=== PATIENT | female | born 1945 | race Caucasian/White ===

== ENCOUNTER 2016-09-05 17:15 | Inpatient (IN) | payer MEDICARE, OTHER ==
[~2016-09-05] VITALS: Ht 165.1 cm; Wt 147.4 kg
--- NOTE | 2016-09-05 17:20 | NUR ---
PT MERCEDEZ FROM SNF TO ER BED 12. HERE FOR MEDICAL CLEARANCE PRIOR TO SHANICE [facility]YCH ADMISSION. ON 5150 HOLD FOR GD. PLACED ON MONITOR. NAD NOTED. AWAITING MD FERREIRA.
--- NOTE | 2016-09-05 17:31 | NUR ---
MUD MIXER OPERATOR AT BEDSIDE FOR BLOOD DRAW.
[2016-09-05 17:37] LABS: BASOPHILS % (AUTO) 0.3 % (0.0-2.0); EOSINOPHILS # (AUTO) 0.5 /CMM (0.0-0.7); EOSINOPHILS % (AUTO) 4.3 % (0.0-6.0); HEMATOCRIT 45 % (33-45); HEMOGLOBIN 14.9 g/dL (11.5-14.8); LYMPHOCYTES # (AUTO) 2.1 /CMM (0.8-4.8); LYMPHOCYTES % (AUTO) 18.7 % (20.0-44.0); MEAN CORPUSCULAR HEMOGLOBIN 29 PG (26.0-33.0); MEAN CORPUSCULAR HGB CONC 33 g/dl (31.0-36.0); MEAN CORPUSCULAR VOLUME 90 fL (82-100); MONOCYTES # (AUTO) 0.7 /CMM (0.1-1.30); MONOCYTES % (AUTO) 5.7 % (2.0-12.0); NEUTROPHILS # (AUTO) 8.1 /CMM (1.8-8.9); PLATELET COUNT (AUTO) 281 /CMM (150-450); RDW COEFFICIENT OF VARIATION 14.7 (11.5-15.0); RED BLOOD CELL COUNT(AUTO) 5.05 MIL/uL (4.0-5.2); WHITE BLOOD COUNT (AUTO) 11.4 K/uL (4.3-11.0)
[2016-09-05 17:53] LABS: CALCIUM, SERUM 8.9 mg/dL (8.5-10.1); CARBON DIOXIDE 23 mmol/L (21-32); CHLORIDE 104 mmol/L (98-107); CREATININE 0.7 mg/dL (0.6-1.3); GFR 83 mL/min (>60); GLUCOSE 225 mg/dL (74-106); POTASSIUM 4.3 mmol/L (3.5-5.1); SODIUM SERUM 139 mmol/L (136-145); UREA NITROGEN, BLOOD 15 mg/dL (7-18)
[2016-09-05 17:55] LABS: ALCOHOL, BLOOD < 3 mg/dL (0-0)
[2016-09-05 18:07] LABS: THYROID STIMULATING HORMONE 2.553 uIU/mL (0.358-3.74)
[2016-09-05] MEDS ORDERED: DOCU-25 PO (18:34)
[2016-09-05] MEDS ORDERED: AMLO5TAB2 PO (18:34)
[2016-09-05] MEDS ORDERED: CANA100T PO (18:34)
[2016-09-05] MEDS ORDERED: CARB-93 PO (18:34)
[2016-09-05] MEDS ORDERED: SITA100T PO (18:34)
[2016-09-05] MEDS ORDERED: SIMV20TA2 PO (18:34)
[2016-09-05] MEDS ORDERED: SODI100010 PO (18:34)
[2016-09-05] MEDS ORDERED: METF10002 PO (18:34)
[2016-09-05] MEDS ORDERED: DOXA2TAB PO (18:34)
[2016-09-05] MEDS ORDERED: MULT-213 PO (18:34)
[2016-09-05] MEDS ORDERED: OMEP20CA10 PO (18:34)
[2016-09-05] MEDS ORDERED: POLY15DR57 EACHEYE (18:34)
[2016-09-05] MEDS ORDERED: ACET-868 PO (18:34)
[2016-09-05] MEDS ORDERED: CARV6.25 PO (18:34)
[2016-09-05] MEDS ORDERED: HYDR-548 PO (18:34)
[2016-09-05] MEDS ORDERED: LEVO100T9 PO (18:34)
[2016-09-05] MEDS ORDERED: MAGN400T6 PO (18:34)
[2016-09-05] MEDS ORDERED: SENN8.6T6 PO (18:34)
[2016-09-05] MEDS ORDERED: LOSA50TA3 PO (18:34)
[2016-09-05] MEDS ORDERED: INSU100V10 SQ (18:34)
[2016-09-05] MEDS ORDERED: DIVA500T2 PO (18:34)
[2016-09-05] MEDS ORDERED: INSU100I14 SQ (18:34)
--- NOTE | 2016-09-05 18:44 | NUR ---
REPORT GIVEN TO AURORA. PT TRANSFERED TO FLOOR. STABLE CONDITION.
--- NOTE | 2016-09-05 19:30 | NUR ---
ADMITTED NOTES THIS 71Y/O FEMALE ADMITTED FROM [facility] ER. IS ON 5150 HOLD FOR GD PER HOLD , PT IS A/0 X 1,2 ,PT UNCOOPERATIVE COMBATIVE AGGRESSIVE, CONTRABAND CHECK DONE, SAFE ENVIRONMENT PROVIDED , BOTH MD AWARE OF NEW ADMISSION AND MEDICATION, NEW ORDERS RECEIVED AND CARRIED OUT, FAMILY AWARE. WILL CONTINUE TO MONITOR FOR SAFETY AND BEHAVIOR .
[2016-09-05] MEDS ORDERED: MAGNESIUM HYDROXIDE 30 ML UDC PO PRN (20:00)
[2016-09-05] MEDS ORDERED: ACETAMINOPHEN 325 MG TABLET PO PRN (20:00)
[2016-09-05] MEDS ORDERED: LORAZEPAM 0.5 MG TABLET PO PRN (20:00)
[2016-09-05] MEDS ORDERED: MAG HYDROX/AL HYDROX/SIMETH 30 ML UDC PO PRN (20:00)
--- NOTE | 2016-09-05 21:00 | NUR ---
GPS RN NOTES BODY CHECK DONE, PERIANAL AREA AND BUTTOCKS AREA REDNESS NOTED , INITIATE TX ,PICTURE TAKEN AND PLACED IN THE CHART , WOUND CONSULT TRIGGERED,
[2016-09-05] MEDS: TEMAZEPAM 7.5 MG CAPSULE PO PRN (21:28)
[2016-09-05] MEDS ORDERED: Z GUARD REMEDY 4 OZ OINT TP ONE (21:54)
[2016-09-05] MEDS ORDERED: Z GUARD REMEDY 2 OZ OINT TP PRN (22:00)
[2016-09-05] MEDS: Z GUARD REMEDY 2 OZ OINT TP SCH (22:59)
--- NOTE | 2016-09-06 00:10 | NUR ---
GPS RN NOTE: NOTIFIED JON BRICEÑO NP TO RECONCILE MEDICATION
[2016-09-06 01:40] VITALS: BP 156/79
[2016-09-06 07:03] LABS: CREATININE 0.7 mg/dL (0.6-1.3)
[2016-09-06 08:00] VITALS: BP 153/93
[2016-09-06] MEDS: Z GUARD REMEDY 2 OZ OINT TP SCH ×2 (09:02→21:32)
[2016-09-06] MEDS ORDERED: DEXTROSE 50%-WATER 50 ML DISP.SYRIN IV PRN (09:30)
[2016-09-06] MEDS ORDERED: *INSULIN REGULAR(HUMULIN R)HUM 100 UNIT/ML VIAL SQ PRN (09:30)
[2016-09-06] MEDS ORDERED: POLYVINYL ALCOHOL 15 ML BOTTLE EACHEYE PRN (09:30)
[2016-09-06] MEDS ORDERED: HYDROCODONE/APAP 10/325MG 1 EA TABLET PO PRN (09:30)
[2016-09-06] MEDS ORDERED: ACETAMINOPHEN 325 MG TABLET PO PRN (09:30)
[2016-09-06] MEDS: MULTIVIT, IRON, MIN NO. 8, FA 1 TAB TABLET PO SCH (10:16)
[2016-09-06] MEDS: BLOOD SUGAR DIAGNOSTIC 1 EACH STRIP IN SCH ×3 (12:43→21:21)
--- NOTE | 2016-09-06 12:44 | NUR ---
WOUND CARE CONSULT: PT PRESENTS WITH FUNGAL RASH TO BREAST FOLDS AND INNER BUTTOCKS, PERINEAL AREAS, PRESENT ON ADMISSION WELL EXCORIATION TO RT POSTERIOR THIGH, PRESENT ON ADMISSION. PT INCONTINENT. MP SCORE IS 18. SKIN PROTECTION DISCUSSED WITH NURSING STAFF. WILL SEE PRN. MARTINEZ IN AGREEMENT WITH PLAN OF CARE. Addendum: 09/06/16 at 1245 by RAJENDRA BAE WNDNU Amended: Links added.
[2016-09-06] MEDS: CARBIDOPA/LEVODOPA 25/100 MG 1 UDTAB PO SCH ×2 (13:24→16:32)
[2016-09-06] MEDS: INSULIN REGULAR, HUMAN 100 UNIT/ML 3 ML VIAL SQ PRN ×2 (13:25→18:36)
--- NOTE | 2016-09-06 13:26 | NUR ---
Initial Discharge Plan: Patient currently resides at [facility] [id number] [place] [address]. [place], [place] [id number] . aboriginal education worker coordinator spoke to patient's sister/ co-conservator An Tomas ([phone]) who stated that she wanted patient to return to [facility]. aboriginal education worker coordinator spoke to Cari from the facility who confirmed that patient can return upon discharge. aboriginal education worker coordinator will help form a safe and proper discharge.
--- NOTE | 2016-09-06 14:47 | NUR ---
Psychosocial assessment was reviewed and I concur with the information provided. No changes are necessary. Assigned SW to obtain brother's information (conservator according to pt ) to verify discharge planning. Addendum: 09/06/16 at 1450 by STEFAN LEDBETTER SW Amended: Links added.
[2016-09-06 16:00] VITALS: BP 137/56
[2016-09-06] MEDS: SODIUM CHLORIDE 1000 MG TABLET.SOL PO SCH (16:32)
[2016-09-06] MEDS: METFORMIN 500 MG TABLET PO SCH (16:33)
[2016-09-06] MEDS: AMLODIPINE BESYLATE 5 MG TABLET PO SCH (16:33)
[2016-09-06] MEDS: MAGNESIUM OXIDE 400 MG TABLET PO SCH (16:33)
[2016-09-06] MEDS: DOCUSATE SODIUM 100 MG CAPSULE PO SCH (16:33)
[2016-09-06] MEDS: CARVEDILOL 6.25 MG TABLET PO SCH (16:34)
[2016-09-06] MEDS: CLOTRIMAZOLE/BETAMETASONE DIPROPIONATE 15 GM TUBE TP SCH (16:35)
--- NOTE | 2016-09-06 19:30 | NUR ---
RN NOTE; RECEIVED PT IN BED AWAKE AND ALERT. BREATHING EVENLY. NO SOB. NO DISTRESS. NO BEHAVIORAL PROBLEM . DENIED ANY PAIN OR DISCOMFORT. NEEDS ATTENDED. BED LOW LOCKED. SRZ2. CALL LIGHT WITHIN REACH, WILL CONT TO MONITOR
[2016-09-06 20:29] VITALS: BP 140/52
[2016-09-06] MEDS: MUPIROCIN OINT 2% 22 GM TUBE SCH (21:17)
[2016-09-06] MEDS: LOSARTAN POTASSIUM 50 MG TABLET PO SCH (21:17)
[2016-09-06] MEDS: QUETIAPINE FUMARATE 100 MG TABLET PO SCH (21:18)
[2016-09-06] MEDS: DIVALPROEX SODIUM 500 MG TABLET.DR PO SCH (21:18)
[2016-09-06] MEDS: SIMVASTATIN 20 MG TABLET PO SCH (21:18)
[2016-09-06] MEDS: SENNOSIDES 8.6 MG TABLET PO SCH (21:18)
[2016-09-06] MEDS: DOXAZOSIN MESYLATE (1 MG) 1 MG TABLET PO SCH (21:19)
[2016-09-06] MEDS: INSULIN DETEMIR 100 UNIT/ML CARTRIDGE SQ SCH (21:22)
[2016-09-06] MEDS ORDERED: DIVALPROEX SODIUM 500 MG TABLET.DR PO SCH (22:00)
--- NOTE | 2016-09-07 06:18 | NUR ---
rn note; PT IN BED SLEEPING, BREATHING EVENLY. NO SOB, NO DISTRESS. SKIN WARM AND DRY. 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 GOOD ISOLATION PRECAUTION AND PROPER HANDWASHING OBSERVED BY ALL STAFF. NO EPISODE OF HYPO OR HYPERGLYCEMIA. NO ACUTE CHANGES DURING THE NIGHT. NO ANXIETY EPISODE. COMPLIANT W/ MEDICATIONS. MEDICATED ORDERED. ASSISTED W/ ADLS. CLEANED AND DRIED. BED LOW LOCKED ; CALL BUTTON WITHIN REACH , WILL CONT TO MONITOR AND WILL ENDORSE TO AM SHIFT FOR ANTONIA.
[2016-09-07 08:00] VITALS: BP 119/51
[2016-09-07] MEDS: BLOOD SUGAR DIAGNOSTIC 1 EACH STRIP IN SCH ×4 (08:06→21:36)
[2016-09-07] MEDS: SODIUM CHLORIDE 1000 MG TABLET.SOL PO SCH ×2 (08:28→16:29)
[2016-09-07] MEDS: MAGNESIUM OXIDE 400 MG TABLET PO SCH ×2 (08:28→16:29)
[2016-09-07] MEDS: QUETIAPINE FUMARATE 25 MG TABLET PO SCH (08:28)
[2016-09-07] MEDS: DIVALPROEX SODIUM 500 MG TABLET.DR PO SCH ×2 (08:28→20:15)
[2016-09-07] MEDS: DOCUSATE SODIUM 100 MG CAPSULE PO SCH ×2 (08:28→16:29)
[2016-09-07] MEDS: LINAGLIPTIN 5 MG TABLET PO SCH (08:28)
[2016-09-07] MEDS: LEVOTHYROXINE SODIUM 100 MCG TABLET PO SCH (08:28)
[2016-09-07] MEDS: MULTIVIT, IRON, MIN NO. 8, FA 1 TAB TABLET PO SCH (08:28)
[2016-09-07] MEDS: CARBIDOPA/LEVODOPA 25/100 MG 1 UDTAB PO SCH ×3 (08:28→16:29)
[2016-09-07] MEDS: METFORMIN 500 MG TABLET PO SCH ×2 (08:28→16:29)
[2016-09-07] MEDS: MUPIROCIN OINT 2% 22 GM TUBE SCH ×2 (08:29→21:22)
[2016-09-07] MEDS: PANTOPRAZOLE 40 MG TABLET.DR PO SCH (08:29)
[2016-09-07] MEDS: Z GUARD REMEDY 2 OZ OINT TP SCH ×2 (08:33→21:14)
[2016-09-07] MEDS: CLOTRIMAZOLE/BETAMETASONE DIPROPIONATE 15 GM TUBE TP SCH ×2 (08:36→16:32)
[2016-09-07] MEDS: INSULIN DETEMIR 100 UNIT/ML CARTRIDGE SQ SCH ×2 (09:00→21:00)
[2016-09-07] MEDS: CARVEDILOL 6.25 MG TABLET PO SCH ×2 (09:00→16:45)
[2016-09-07] MEDS: LOSARTAN POTASSIUM 50 MG TABLET PO SCH ×2 (09:00→20:15)
[2016-09-07] MEDS ORDERED: CANAGLIFLOZIN 200 MG PO SCH (09:00)
[2016-09-07] MEDS: AMLODIPINE BESYLATE 5 MG TABLET PO SCH ×2 (09:00→16:45)
--- NOTE | 2016-09-07 09:00 | NUR ---
GPS/RN PATIENT BS, 183, REFUSED LEVIMER 12 UNITS AND REGULAR INSULIN 4 UNITS.EXPLAINED RISKS AND BENEFITS, BUT CONTINUES TO REFUSE, SHOUTING AND INCREASING ANGER AND AGITATION WHEN EDUCATING ON THE IMPORTANCE OF COMPLYING WITH REGIMEN. STABLE CONDITION, WILL CONTINUE TO MONITOR AND ENCOURAGE TO COMPLY WITH MD REGIMEN.
--- NOTE | 2016-09-07 09:30 | NUR ---
GPS/RN PATIENT BLOOD PRESSURE 119/51, RECHECKED, THEN 127/48, BLOOD PRESSURE MEDICATIONS HELD DUE TO DECREASED BP READING, PATIENT STABLE CONDITION, BREATHING EVEN AND UNLABORED,NO DISTRESS NOTED, WILL CONTINUE TO MONITOR.
--- NOTE | 2016-09-07 12:15 | NUR ---
GPS/RN PATIENT ADAMANTLY REFUSING ACCUCHECK, STATED "NO, GET OUT, I ONLY WANT MY PILLS, " EXPLAINED RISKS AND BENEFITS, CONTINUES TO REFUSE, WILL CONTINUE TO ENCOURAGE AND EDUCATE PATIENT TO COMPLY WITH MD REGIMEN.
[2016-09-07 16:01] VITALS: BP 132/61
--- NOTE | 2016-09-07 17:48 | NUR ---
GPS/RN PATIENT REFUSED 1730 ACCCAMERON, X 3, EXPLAINED RISKS AND BENEFITS BUT BECOMES INCREASINGLY ANXIOUS AND AGITATED AND CONTINUES TO REFUSE, WILL CONTINUE TO ENCOURAGE AND EDUCATE PATIENT TO COMPLY WITH MD REGIMEN.
[2016-09-07 20:00] VITALS: BP 162/86
[2016-09-07] MEDS: SIMVASTATIN 20 MG TABLET PO SCH (21:09)
[2016-09-07] MEDS: DOXAZOSIN MESYLATE (1 MG) 1 MG TABLET PO SCH (21:09)
[2016-09-07] MEDS: SENNOSIDES 8.6 MG TABLET PO SCH (21:10)
[2016-09-07] MEDS: QUETIAPINE FUMARATE 100 MG TABLET PO SCH (21:22)
[2016-09-07] MEDS: TEMAZEPAM 7.5 MG CAPSULE PO PRN (22:07)
--- NOTE | 2016-09-07 23:00 | NUR ---
GPS RN NOTES REFUSED ACCU CHECK AT HS. REFUSED LEVEMIR WELL.
[2016-09-08] MEDS: BLOOD SUGAR DIAGNOSTIC 1 EACH STRIP IN SCH ×4 (07:30→21:09)
[2016-09-08 08:00] VITALS: BP 124/69
[2016-09-08] MEDS: INSULIN DETEMIR 100 UNIT/ML CARTRIDGE SQ SCH ×2 (09:00→21:00)
[2016-09-08] MEDS: MULTIVIT, IRON, MIN NO. 8, FA 1 TAB TABLET PO SCH (09:06)
[2016-09-08] MEDS: CARBIDOPA/LEVODOPA 25/100 MG 1 UDTAB PO SCH ×3 (09:06→16:48)
[2016-09-08] MEDS: DIVALPROEX SODIUM 500 MG TABLET.DR PO SCH ×2 (09:06→20:20)
[2016-09-08] MEDS: QUETIAPINE FUMARATE 25 MG TABLET PO SCH (09:07)
[2016-09-08] MEDS: LINAGLIPTIN 5 MG TABLET PO SCH (09:07)
[2016-09-08] MEDS: SODIUM CHLORIDE 1000 MG TABLET.SOL PO SCH ×2 (09:07→16:49)
[2016-09-08] MEDS: LEVOTHYROXINE SODIUM 100 MCG TABLET PO SCH (09:07)
[2016-09-08] MEDS: METFORMIN 500 MG TABLET PO SCH ×2 (09:07→16:49)
[2016-09-08] MEDS: MAGNESIUM OXIDE 400 MG TABLET PO SCH ×2 (09:07→16:49)
[2016-09-08] MEDS: PANTOPRAZOLE 40 MG TABLET.DR PO SCH (09:07)
[2016-09-08] MEDS: DOCUSATE SODIUM 100 MG CAPSULE PO SCH ×2 (09:07→16:49)
[2016-09-08] MEDS: CARVEDILOL 6.25 MG TABLET PO SCH ×2 (09:08→16:50)
[2016-09-08] MEDS: AMLODIPINE BESYLATE 5 MG TABLET PO SCH ×2 (09:08→16:50)
[2016-09-08] MEDS: LOSARTAN POTASSIUM 50 MG TABLET PO SCH ×2 (09:08→20:21)
[2016-09-08] MEDS: Z GUARD REMEDY 2 OZ OINT TP SCH ×2 (09:09→21:06)
[2016-09-08] MEDS: MUPIROCIN OINT 2% 22 GM TUBE SCH ×2 (09:12→21:04)
[2016-09-08] MEDS: CLOTRIMAZOLE/BETAMETASONE DIPROPIONATE 15 GM TUBE TP SCH ×2 (09:12→16:51)
--- NOTE | 2016-09-08 09:30 | NUR ---
GPS/RN PT REFUSED ACCUCHECK IN AM OFFERED X3. DR OTERO MADE AWARE.
--- NOTE | 2016-09-08 14:04 | NUR ---
mat worker attempted to contact patient's brother and conservator Flash Arrieta ([phone]) however, he did not answer. mat worker left him a message with her contact information and is waiting for a call back. mat worker did speak to patient's sister An Tomas (co-conservator) ([phone]) to discuss patient's discharge plan. social services coordinator will follow-up.
[2016-09-08 16:09] VITALS: BP 125/62
[2016-09-08 20:00] VITALS: BP 128/57
[2016-09-08] MEDS: SENNOSIDES 8.6 MG TABLET PO SCH (21:10)
[2016-09-08] MEDS: DOXAZOSIN MESYLATE (1 MG) 1 MG TABLET PO SCH (21:11)
[2016-09-08] MEDS: SIMVASTATIN 20 MG TABLET PO SCH (21:11)
[2016-09-08] MEDS: QUETIAPINE FUMARATE 100 MG TABLET PO SCH (21:11)
--- NOTE | 2016-09-08 21:50 | NUR ---
GPS RN NOTES PATIENT REFUSED ACCU CHECK AND LEVEMIR AT THIS TIME. TOOK ALL OTHER MEDICATIONS BUT YELLED AND GOT ANGRY WHEN TOLD THAT THIS RN WILL DO ACCU CHECK AND GIVE HER LEVEMIR.
[2016-09-09] MEDS: BLOOD SUGAR DIAGNOSTIC 1 EACH STRIP IN SCH ×4 (07:30→22:00)
[2016-09-09 08:00] VITALS: BP 138/68
[2016-09-09] MEDS: INSULIN DETEMIR 100 UNIT/ML CARTRIDGE SQ SCH ×2 (09:00→21:00)
[2016-09-09] MEDS: MULTIVIT, IRON, MIN NO. 8, FA 1 TAB TABLET PO SCH (09:03)
[2016-09-09] MEDS: CARBIDOPA/LEVODOPA 25/100 MG 1 UDTAB PO SCH ×3 (09:03→17:41)
[2016-09-09] MEDS: LINAGLIPTIN 5 MG TABLET PO SCH (09:03)
[2016-09-09] MEDS: METFORMIN 500 MG TABLET PO SCH ×2 (09:03→17:40)
[2016-09-09] MEDS: MAGNESIUM OXIDE 400 MG TABLET PO SCH ×2 (09:03→17:41)
[2016-09-09] MEDS: LEVOTHYROXINE SODIUM 100 MCG TABLET PO SCH (09:03)
[2016-09-09] MEDS: DIVALPROEX SODIUM 500 MG TABLET.DR PO SCH ×2 (09:03→21:58)
[2016-09-09] MEDS: SODIUM CHLORIDE 1000 MG TABLET.SOL PO SCH ×2 (09:03→17:41)
[2016-09-09] MEDS: AMLODIPINE BESYLATE 5 MG TABLET PO SCH ×2 (09:04→17:41)
[2016-09-09] MEDS: DOCUSATE SODIUM 100 MG CAPSULE PO SCH ×2 (09:04→17:40)
[2016-09-09] MEDS: LOSARTAN POTASSIUM 50 MG TABLET PO SCH ×2 (09:04→21:58)
[2016-09-09] MEDS: PANTOPRAZOLE 40 MG TABLET.DR PO SCH (09:04)
[2016-09-09] MEDS: CARVEDILOL 6.25 MG TABLET PO SCH ×2 (09:04→17:41)
[2016-09-09] MEDS: QUETIAPINE FUMARATE 25 MG TABLET PO SCH (09:05)
[2016-09-09] MEDS: Z GUARD REMEDY 2 OZ OINT TP SCH ×2 (09:05→21:59)
[2016-09-09] MEDS: CLOTRIMAZOLE/BETAMETASONE DIPROPIONATE 15 GM TUBE TP SCH ×2 (09:06→17:41)
[2016-09-09] MEDS: MUPIROCIN OINT 2% 22 GM TUBE SCH ×2 (09:08→21:57)
--- NOTE | 2016-09-09 11:10 | NUR ---
DR. ZAMORANO GAVE AN ORDER FOR THE DENIAL RIGHTS FOR ROOM SEARCH TO LOOK FOR THE MISSING CORDLESS PHONES.
[2016-09-09 16:00] VITALS: BP 144/59
[2016-09-09 20:00] VITALS: BP 140/57
[2016-09-09] MEDS: SIMVASTATIN 20 MG TABLET PO SCH (21:57)
[2016-09-09] MEDS: SENNOSIDES 8.6 MG TABLET PO SCH (21:58)
[2016-09-09] MEDS: QUETIAPINE FUMARATE 100 MG TABLET PO SCH (21:59)
[2016-09-09] MEDS: DOXAZOSIN MESYLATE (1 MG) 1 MG TABLET PO SCH (21:59)
--- NOTE | 2016-09-09 22:00 | NUR ---
RN NOTES PT. REFUSED ACCU-CHECK EVEN I EXPLAINED THE IMPORTANCE OF CHECKING HER BLOOD SUGAR
[2016-09-10] MEDS: BLOOD SUGAR DIAGNOSTIC 1 EACH STRIP IN SCH ×4 (07:30→21:51)
[2016-09-10 08:00] VITALS: BP 115/64
[2016-09-10] MEDS: CARBIDOPA/LEVODOPA 25/100 MG 1 UDTAB PO SCH ×3 (08:50→18:10)
[2016-09-10] MEDS: DIVALPROEX SODIUM 500 MG TABLET.DR PO SCH ×2 (08:50→21:44)
[2016-09-10] MEDS: SODIUM CHLORIDE 1000 MG TABLET.SOL PO SCH ×2 (08:50→18:09)
[2016-09-10] MEDS: MULTIVIT, IRON, MIN NO. 8, FA 1 TAB TABLET PO SCH (08:50)
[2016-09-10] MEDS: DOCUSATE SODIUM 100 MG CAPSULE PO SCH ×2 (08:50→18:10)
[2016-09-10] MEDS: MAGNESIUM OXIDE 400 MG TABLET PO SCH ×2 (08:51→18:10)
[2016-09-10] MEDS: AMLODIPINE BESYLATE 5 MG TABLET PO SCH ×2 (08:51→18:10)
[2016-09-10] MEDS: METFORMIN 500 MG TABLET PO SCH ×2 (08:51→18:10)
[2016-09-10] MEDS: LOSARTAN POTASSIUM 50 MG TABLET PO SCH ×2 (08:51→21:46)
[2016-09-10] MEDS: LINAGLIPTIN 5 MG TABLET PO SCH (08:51)
[2016-09-10] MEDS: PANTOPRAZOLE 40 MG TABLET.DR PO SCH (08:52)
[2016-09-10] MEDS: QUETIAPINE FUMARATE 25 MG TABLET PO SCH (08:52)
[2016-09-10] MEDS: CARVEDILOL 6.25 MG TABLET PO SCH ×2 (08:52→18:10)
[2016-09-10] MEDS: LEVOTHYROXINE SODIUM 100 MCG TABLET PO SCH (08:52)
[2016-09-10] MEDS: MUPIROCIN OINT 2% 22 GM TUBE SCH ×2 (08:53→21:43)
[2016-09-10] MEDS: Z GUARD REMEDY 2 OZ OINT TP SCH ×2 (08:56→21:48)
[2016-09-10] MEDS: CLOTRIMAZOLE/BETAMETASONE DIPROPIONATE 15 GM TUBE TP SCH ×2 (08:56→17:00)
[2016-09-10] MEDS: INSULIN DETEMIR 100 UNIT/ML CARTRIDGE SQ SCH ×2 (08:57→21:00)
--- NOTE | 2016-09-10 13:10 | NUR ---
GPS/RN RECEIVED PT FROM LYLA SALGUERO TO CONTINUE WITH CARE. PT IS IN NO DISTRESS RESTING COMFORTABLY IN THE BED.
[2016-09-10 16:00] VITALS: BP 120/60
[2016-09-10 20:20] VITALS: BP 158/70
[2016-09-10 21:00] VITALS: BP 140/78
[2016-09-10] MEDS: DOXAZOSIN MESYLATE (1 MG) 1 MG TABLET PO SCH (21:44)
[2016-09-10] MEDS: QUETIAPINE FUMARATE 100 MG TABLET PO SCH (21:45)
[2016-09-10] MEDS: SIMVASTATIN 20 MG TABLET PO SCH (21:45)
[2016-09-10] MEDS: SENNOSIDES 8.6 MG TABLET PO SCH (21:45)
--- NOTE | 2016-09-10 22:00 | NUR ---
PT REFUSED ACCU CHECK ENCOURAGED X3 STILL REFUSE.
[2016-09-11] MEDS: BLOOD SUGAR DIAGNOSTIC 1 EACH STRIP IN SCH ×4 (07:30→21:22)
[2016-09-11] MEDS: MUPIROCIN OINT 2% 22 GM TUBE SCH ×2 (08:51→21:18)
[2016-09-11] MEDS: LEVOTHYROXINE SODIUM 100 MCG TABLET PO SCH (08:52)
[2016-09-11] MEDS: CARBIDOPA/LEVODOPA 25/100 MG 1 UDTAB PO SCH ×3 (08:52→18:05)
[2016-09-11] MEDS: SODIUM CHLORIDE 1000 MG TABLET.SOL PO SCH ×2 (08:52→18:05)
[2016-09-11] MEDS: PANTOPRAZOLE 40 MG TABLET.DR PO SCH (08:52)
[2016-09-11] MEDS: DIVALPROEX SODIUM 500 MG TABLET.DR PO SCH ×2 (08:52→21:16)
[2016-09-11] MEDS: LOSARTAN POTASSIUM 50 MG TABLET PO SCH ×2 (08:52→21:19)
[2016-09-11 08:53] VITALS: BP 135/57
[2016-09-11] MEDS: AMLODIPINE BESYLATE 5 MG TABLET PO SCH ×2 (08:53→18:06)
[2016-09-11] MEDS: LINAGLIPTIN 5 MG TABLET PO SCH (08:53)
[2016-09-11] MEDS: METFORMIN 500 MG TABLET PO SCH ×2 (08:53→18:05)
[2016-09-11] MEDS: DOCUSATE SODIUM 100 MG CAPSULE PO SCH ×2 (08:53→18:05)
[2016-09-11] MEDS: MULTIVIT, IRON, MIN NO. 8, FA 1 TAB TABLET PO SCH (08:53)
[2016-09-11] MEDS: MAGNESIUM OXIDE 400 MG TABLET PO SCH ×2 (08:53→18:05)
[2016-09-11] MEDS: CARVEDILOL 6.25 MG TABLET PO SCH ×2 (08:54→18:04)
[2016-09-11] MEDS: QUETIAPINE FUMARATE 25 MG TABLET PO SCH (08:54)
[2016-09-11] MEDS: INSULIN DETEMIR 100 UNIT/ML CARTRIDGE SQ SCH ×2 (08:55→21:00)
[2016-09-11] MEDS: Z GUARD REMEDY 2 OZ OINT TP SCH ×2 (08:56→21:18)
[2016-09-11] MEDS: CLOTRIMAZOLE/BETAMETASONE DIPROPIONATE 15 GM TUBE TP SCH ×2 (08:56→18:06)
[2016-09-11 16:00] VITALS: BP 124/55
[2016-09-11] MEDS: SENNOSIDES 8.6 MG TABLET PO SCH (21:15)
[2016-09-11] MEDS: DOXAZOSIN MESYLATE (1 MG) 1 MG TABLET PO SCH (21:16)
[2016-09-11] MEDS: QUETIAPINE FUMARATE 100 MG TABLET PO SCH (21:17)
[2016-09-11] MEDS: SIMVASTATIN 20 MG TABLET PO SCH (21:17)
[2016-09-11 21:38] VITALS: BP 130/59
[2016-09-12] MEDS: BLOOD SUGAR DIAGNOSTIC 1 EACH STRIP IN SCH ×4 (07:30→21:58)
--- NOTE | 2016-09-12 07:33 | NUR ---
pt. refused Accu check at 22:00 pm encouraged x3 still refused
[2016-09-12 08:00] VITALS: BP 129/57
[2016-09-12] MEDS: CARBIDOPA/LEVODOPA 25/100 MG 1 UDTAB PO SCH ×3 (08:17→16:20)
[2016-09-12] MEDS: LINAGLIPTIN 5 MG TABLET PO SCH (08:17)
[2016-09-12] MEDS: DIVALPROEX SODIUM 500 MG TABLET.DR PO SCH ×2 (08:17→21:01)
[2016-09-12] MEDS: MULTIVIT, IRON, MIN NO. 8, FA 1 TAB TABLET PO SCH (08:18)
[2016-09-12] MEDS: QUETIAPINE FUMARATE 25 MG TABLET PO SCH (08:18)
[2016-09-12] MEDS: METFORMIN 500 MG TABLET PO SCH ×2 (08:18→16:20)
[2016-09-12] MEDS: MAGNESIUM OXIDE 400 MG TABLET PO SCH ×2 (08:18→16:20)
[2016-09-12] MEDS: DOCUSATE SODIUM 100 MG CAPSULE PO SCH ×2 (08:18→16:20)
[2016-09-12] MEDS: SODIUM CHLORIDE 1000 MG TABLET.SOL PO SCH ×2 (08:18→16:20)
[2016-09-12] MEDS: PANTOPRAZOLE 40 MG TABLET.DR PO SCH (08:19)
[2016-09-12] MEDS: LEVOTHYROXINE SODIUM 100 MCG TABLET PO SCH (08:19)
[2016-09-12] MEDS: LOSARTAN POTASSIUM 50 MG TABLET PO SCH ×2 (08:19→21:00)
[2016-09-12] MEDS: AMLODIPINE BESYLATE 5 MG TABLET PO SCH ×2 (08:20→16:20)
[2016-09-12] MEDS: CARVEDILOL 6.25 MG TABLET PO SCH ×2 (08:20→16:20)
[2016-09-12] MEDS: INSULIN DETEMIR 100 UNIT/ML CARTRIDGE SQ SCH ×2 (08:21→20:44)
[2016-09-12] MEDS: Z GUARD REMEDY 2 OZ OINT TP SCH ×2 (08:45→20:45)
[2016-09-12] MEDS: MUPIROCIN OINT 2% 22 GM TUBE SCH ×2 (08:45→20:42)
[2016-09-12] MEDS: CLOTRIMAZOLE/BETAMETASONE DIPROPIONATE 15 GM TUBE TP SCH ×2 (08:58→16:26)
--- NOTE | 2016-09-12 09:25 | NUR ---
GPS RN NOTE: PT REFUSED ACCU CHECK ENCOURAGED X3 STILL REFUSE.
[2016-09-12 16:00] VITALS: BP 126/64
[2016-09-12 20:20] VITALS: BP 95/50
[2016-09-12] MEDS: SIMVASTATIN 20 MG TABLET PO SCH (21:01)
[2016-09-12] MEDS: QUETIAPINE FUMARATE 100 MG TABLET PO SCH (21:02)
[2016-09-12] MEDS: DOXAZOSIN MESYLATE (1 MG) 1 MG TABLET PO SCH (21:02)
[2016-09-12] MEDS: SENNOSIDES 8.6 MG TABLET PO SCH (21:03)
--- NOTE | 2016-09-12 21:59 | NUR ---
GPS RN NOTE: PT REFUSED ACCU CHECK AT 22:00 PM ENCOURAGED X3 STILL REFUSE.
[2016-09-13] MEDS: BLOOD SUGAR DIAGNOSTIC 1 EACH STRIP IN SCH ×2 (07:24→12:00)
[2016-09-13 08:00] VITALS: BP 127/52
[2016-09-13] MEDS: DOCUSATE SODIUM 100 MG CAPSULE PO SCH (08:28)
[2016-09-13] MEDS: MAGNESIUM OXIDE 400 MG TABLET PO SCH (08:28)
[2016-09-13] MEDS: LOSARTAN POTASSIUM 50 MG TABLET PO SCH (08:28)
[2016-09-13] MEDS: QUETIAPINE FUMARATE 25 MG TABLET PO SCH (08:28)
[2016-09-13] MEDS: LEVOTHYROXINE SODIUM 100 MCG TABLET PO SCH (08:28)
[2016-09-13] MEDS: MULTIVIT, IRON, MIN NO. 8, FA 1 TAB TABLET PO SCH (08:28)
[2016-09-13] MEDS: METFORMIN 500 MG TABLET PO SCH (08:28)
[2016-09-13 08:29] VITALS: BP 127/52
[2016-09-13] MEDS: LINAGLIPTIN 5 MG TABLET PO SCH (08:29)
[2016-09-13] MEDS: CARBIDOPA/LEVODOPA 25/100 MG 1 UDTAB PO SCH (08:29)
[2016-09-13] MEDS: AMLODIPINE BESYLATE 5 MG TABLET PO SCH (08:29)
[2016-09-13] MEDS: SODIUM CHLORIDE 1000 MG TABLET.SOL PO SCH (08:29)
[2016-09-13] MEDS: DIVALPROEX SODIUM 500 MG TABLET.DR PO SCH (08:29)
[2016-09-13] MEDS: CARVEDILOL 6.25 MG TABLET PO SCH (08:29)
[2016-09-13] MEDS: PANTOPRAZOLE 40 MG TABLET.DR PO SCH (08:30)
[2016-09-13] MEDS: CLOTRIMAZOLE/BETAMETASONE DIPROPIONATE 15 GM TUBE TP SCH (08:31)
[2016-09-13] MEDS: Z GUARD REMEDY 2 OZ OINT TP SCH (08:31)
[2016-09-13] MEDS: MUPIROCIN OINT 2% 22 GM TUBE SCH (08:32)
[2016-09-13] MEDS: INSULIN DETEMIR 100 UNIT/ML CARTRIDGE SQ SCH (08:32)
--- NOTE | 2016-09-13 14:09 | NUR ---
DISCHARGE NOTES/PATIENT DISCHARGE AT THIS TIME GOING SNF. PATIENT A/O X2/3, MED COMPLIANT, V/S STABLE, MEDICALLY STABLE, DENIED PAIN AT THIS TIME. PATIENT DENIED SI/HI/AVH AT THIS TIME, MED RECONCILIATION, AND DISCHARGE ORDER REVIEWED AND EXPLAINED TO. REPORT GIVEN SNF RN. RN VERBALIZED UNDERSTANDING BELONGING RETURNED BACK TO THE PATIENT . PATIENT AIRPLANE DISPATCHER BY AMBULANCE.
--- NOTE | 2016-09-13 16:34 | NUR ---
Patient was discharged to [address] [address] ([phone]) via med response. Patient's sister/ conservator An Tomas ([phone]) and brother/conservator Flash Arrieta ([phone]) were agreeable with the discharge plan. Patient mood and affect were appropriate upon discharge. Patient denied suicidal/ homicidal ideations upon discharge Facilitated info to IDT team who are in agreement with discharge arrangement. The multidisciplinary exitcare form was done, printed, signed, and given to the patient.
== END 2016-09-13 14:14 | DRG 885 ==
LOC: ER 17:20 → GPS 18:29
PROVIDERS: ADMIT Psychiatry & Neurology Psychiatry; ATTEND Family Medicine
DX: F25.9 Schizoaffective disorder, unspecified (principal); E43 Unspecified severe protein-calorie malnutrition; E11.65 Type 2 diabetes mellitus with hyperglycemia; Z68.43 Body mass index [BMI] 50.0-59.9, adult; F29 Unspecified psychosis not due to a substance or known physiological condition; F03.90 Unspecified dementia, unspecified severity, without behavioral disturbance, psychotic disturbance, mood disturbance, and anxiety; I10 Essential (primary) hypertension; I25.10 Atherosclerotic heart disease of native coronary artery without angina pectoris; M19.90 Unspecified osteoarthritis, unspecified site; Z73.6 Limitation of activities due to disability; Z22.322 Carrier or suspected carrier of Methicillin resistant Staphylococcus aureus
CPT/HCPCS: 36415; 80048-TC; 80061-TC; 80164-TC; 82565-TC; 82962-TC; 84443-TC; 85025-TC; 87081-TC; A4606; G0480; J1815; Z7610

== ENCOUNTER 2016-09-19 15:08 | Inpatient (IN) | payer MEDICARE, OTHER ==
[~2016-09-19] VITALS: Ht 167.6 cm; Wt 94.8 kg
[~2016-09-19 15:08] MED LIST: ACET-868 PO; AMLO5TAB2 PO; CANA100T PO; CARB-93 PO; CARV6.25 PO; DIVA500T2 PO; DOCU-25 PO; DOXA2TAB PO; HYDR-548 PO; INSU100I14 SQ; INSU100V10 SQ; LEVO100T9 PO; LOSA50TA3 PO; MAGN400T6 PO; METF10002 PO; MULT-213 PO; OMEP20CA10 PO; POLY15DR57 EACHEYE; SENN8.6T6 PO; SIMV20TA2 PO; SITA100T PO; SODI100010 PO
--- NOTE | 2016-09-19 15:20 | NUR ---
PT RAKEL MARTIN ON 5150 HOLD FOR MEDICAL CLEARANCE. PT A/OX0, AGITATED AND YELLING AT STAFF. PT REPEATING "I'M GOING TO MY [facility] TODAY". NAD NOTED. IN ER BED 09.
--- NOTE | 2016-09-19 15:21 | NUR ---
FOREST NURSERY SUPERVISOR AT BEDSIDE FOR BLOOD DRAW
[2016-09-19 15:27] LABS: BASOPHILS # (AUTO) 0.1 /CMM (0.0-0.2); BASOPHILS % (AUTO) 0.5 % (0.0-2.0); EOSINOPHILS # (AUTO) 0.4 /CMM (0.0-0.7); EOSINOPHILS % (AUTO) 3.4 % (0.0-6.0); HEMATOCRIT 42 % (33-45); HEMOGLOBIN 13.8 g/dL (11.5-14.8); LYMPHOCYTES # (AUTO) 2.5 /CMM (0.8-4.8); LYMPHOCYTES % (AUTO) 20.9 % (20.0-44.0); MEAN CORPUSCULAR HEMOGLOBIN 29 PG (26.0-33.0); MEAN CORPUSCULAR HGB CONC 33 g/dl (31.0-36.0); MEAN CORPUSCULAR VOLUME 89 fL (82-100); MONOCYTES # (AUTO) 0.9 /CMM (0.1-1.30); MONOCYTES % (AUTO) 7.3 % (2.0-12.0); NEUTROPHILS # (AUTO) 8.1 /CMM (1.8-8.9); NEUTROPHILS % (AUTO) 67.9 % (43.0-81.0); PLATELET COUNT (AUTO) 210 /CMM (150-450); RDW COEFFICIENT OF VARIATION 13.7 (11.5-15.0)
--- NOTE | 2016-09-19 15:30 | NUR ---
URINE SAMPLE OBTAINED BY IN AND OUT CATH
[2016-09-19 15:39] LABS: APPEARANCE,URINE Slightly Cloudy (CLEAR); BILIRUBIN,URINE Negative (NEGATIVE); BLOOD, URINE Small Ery/uL (NEGATIVE); COLOR,URINE Yellow (YELLOW); KETONES,URINE 40 (NEGATIVE); LEUKOCYTE ESTERASE ,URINE Trace (NEGATIVE); NITRITE, URINE Positive (NEGATIVE); PROTEIN,URINE 30 mg/dl (NEGATIVE); UROBILINOGEN,URINE 0.2 EU/dL (0.2)
[2016-09-19 15:45] LABS: UGLUCOSE 500 MG/DL mg/dL (NEGATIVE)
[2016-09-19 15:47] LABS: ALANINE AMINOTRANSFERASE 6 U/L (12-78); ALBUMIN 3.2 g/dL (3.4-5.0); ALCOHOL, BLOOD < 3 mg/dL (0-0); ALKALINE PHOSPHATASE 65 U/L (46-116); ASPARTATE AMINOTRANSFERASE 13 U/L (15-37); BILIRUBIN,DIRECT 0.1 mg/dL (0.0-0.2); BILIRUBIN,TOTAL 0.3 mg/dL (0.2-1.0); CALCIUM, SERUM 8.8 mg/dL (8.5-10.1); CARBON DIOXIDE 29 mmol/L (21-32); CHLORIDE 99 mmol/L (98-107); CREATININE 0.9 mg/dL (0.6-1.3); GFR 62 mL/min (>60); SODIUM SERUM 134 mmol/L (136-145); TOTAL PROTEIN, SERUM 7.4 g/dL (6.4-8.2)
[2016-09-19 15:48] LABS: ACETAMINOPHEN 0 ug/ml (10-30); SALICYLATE 1.9 mg/dL (2.8-20.0)
[2016-09-19 15:49] LABS: GLUCOSE 386 mg/dL (74-106)
[2016-09-19 15:50] LABS: CANNABINOID, URINE NEGATIVE (NEGATIVE); PHENCYCLIDINE SCREEN,URINE NEGATIVE (NEGATIVE)
[2016-09-19 15:55] LABS: ADD URINE CULTURE YES; BACTERIA,URINE 1+ /HPF (None Seen); SQUAMOUS EPITHELIAL CELL,UR Moderate /HPF (None Seen); URINE AMORPHOUS URATE Few /HPF (None Seen)
[2016-09-19] MEDS ORDERED: INSULIN ASPART NOVOLOG 100 UNIT/ML CARTRIDGE SQ STA (15:57)
--- NOTE | 2016-09-19 15:57 | NUR ---
REPORT GIVEN TO NIKKIE CASILLAS FOR ADMISSION
[2016-09-19 16:00] VITALS: BP 144/60
[2016-09-19] MEDS ORDERED: CIPROFLOXACIN HCL 250 MG TABLET PO SCH (16:00)
[2016-09-19 16:01] LABS: UREA NITROGEN, BLOOD 16 mg/dL (7-18)
--- NOTE | 2016-09-19 16:07 | NUR ---
[facility]ED [facility]AC[facility]
[2016-09-19] MEDS ORDERED: CIPROFLOXACIN HCL 500 MG TABLET ONE (16:10)
[2016-09-19] MEDS ORDERED: MAGN400O6 PO (16:15)
[2016-09-19] MEDS ORDERED: QUET50TA PO (16:15)
[2016-09-19] MEDS ORDERED: LORA-258 PO (16:15)
[2016-09-19] MEDS ORDERED: PANT40TA2 PO (16:15)
[2016-09-19] MEDS ORDERED: LINA5TAB PO (16:15)
[2016-09-19] MEDS ORDERED: TEMA7.5C PO (16:15)
[2016-09-19] MEDS ORDERED: QUET25TA PO (16:15)
[2016-09-19] MEDS ORDERED: MAG30ORA PO (16:15)
--- NOTE | 2016-09-19 16:17 | NUR ---
PT REFUSED CIPRO. PA NOTIFIED.
--- NOTE | 2016-09-19 16:58 | NUR ---
PT TRANSPORTED TO [facility] IN STABLE CONDITION
[2016-09-19] MEDS ORDERED: ACETAMINOPHEN 325 MG TABLET PO PRN ×2 (17:00→18:30)
[2016-09-19] MEDS ORDERED: TEMAZEPAM 7.5 MG CAPSULE PO PRN (17:00)
[2016-09-19] MEDS ORDERED: MAGNESIUM HYDROXIDE 30 ML UDC PO PRN ×2 (17:00→18:30)
[2016-09-19] MEDS ORDERED: MAG HYDROX/AL HYDROX/SIMETH 30 ML UDC PO PRN ×2 (17:00→18:30)
--- NOTE | 2016-09-19 17:00 | NUR ---
GPS/RN PATIENT ADMITTED ON A 5150 HOLD FOR GD UNDER THE CARE OF DR TRIPP AND DR COOPER. BOTH DR'S AWARE OF NEW ADMISSION. PER HOLD, PATIENT WAS THREATENING TOWARDS ROOMMATES, REFUSING MEDICATION AND CARE AND HAVING AGGRESSIVE BEHAVIOR. UPON FACE TO FACE ASSESSMENT, PATIENT IS DISHEVELED, SCREAMING, YELLING,AGGRESSIVE, UNCOOPERATIVE, REFUSING TO ANSWER QUESTIONS.PHOTOS TAKEN OF SKIN, WOUND CONSULT TRIGGERED, PATIENT DENIES SI/HI AT THIS TIME, WILL CONTINUE TO MONITOR Q 15 MIN FOR SAFETY AND BEHAVIOR.
[2016-09-19 17:15] VITALS: BP 144/60
[2016-09-19] MEDS ORDERED: Z GUARD REMEDY 2 OZ OINT TP PRN (17:30)
[2016-09-19] MEDS ORDERED: HYDROCODONE/APAP 10/325MG 1 EA TABLET PO PRN ×2 (18:30)
[2016-09-19] MEDS ORDERED: INSULIN LISPRO SQ PRN (18:30)
[2016-09-19] MEDS ORDERED: INSULIN LISPRO/ASPART 100 UNIT/ML CARTRIDGE SQ PRN (19:00)
[2016-09-19] MEDS ORDERED: POLYVINYL ALCOHOL 15 ML BOTTLE EACHEYE PRN (19:00)
[2016-09-19] MEDS: DIVALPROEX SODIUM 500 MG TABLET.DR PO SCH (21:30)
[2016-09-19] MEDS: LOSARTAN POTASSIUM 50 MG TABLET PO SCH (21:30)
[2016-09-19] MEDS: QUETIAPINE FUMARATE 25 MG TABLET PO SCH (21:31)
[2016-09-19] MEDS: Z GUARD REMEDY 2 OZ OINT TP SCH (21:31)
[2016-09-19] MEDS: DOXAZOSIN MESYLATE (1 MG) 1 MG TABLET PO SCH (21:34)
[2016-09-19] MEDS: SENNOSIDES 8.6 MG TABLET PO SCH (21:35)
[2016-09-19] MEDS: SIMVASTATIN 20 MG TABLET PO SCH (21:37)
--- NOTE | 2016-09-19 21:40 | NUR ---
GPS/RN NOTE: PATIENT REFUSED ALL HER NIGHT MEDICATIONS AND ACCUCHECK. UPSET, AGITATED, SCREAMING. STATED, " ALL I NEED TO DO IS ATTEND MY CLASS REUNION." EXPLAINED BENEFITS 3X, VERY UNCOOPERATIVE AND NON COMPLIANT WITH MEDICATIONS. WILL TRY LATER
[2016-09-19 22:00] VITALS: BP 124/58
[2016-09-19] MEDS: INSULIN DETEMIR 100 UNIT/ML CARTRIDGE SQ SCH (22:00)
--- NOTE | 2016-09-20 00:20 | NUR ---
GPS/RN NOTE: LEVEMIR INSULIN NOT GIVEN, PATIENT REFUSED ACCUCHECK DONE
[2016-09-20 07:36] LABS: BILIRUBIN,TOTAL 0.3 mg/dL (0.2-1.0); CALCIUM, SERUM 8.6 mg/dL (8.5-10.1); CREATININE 0.8 mg/dL (0.6-1.3); POTASSIUM 4.2 mmol/L (3.5-5.1); TOTAL PROTEIN, SERUM 6.9 g/dL (6.4-8.2)
[2016-09-20] MEDS: MULTIVIT, IRON, MIN NO. 8, FA 1 TAB TABLET PO SCH (09:49)
[2016-09-20] MEDS: LEVOTHYROXINE SODIUM 100 MCG TABLET PO SCH (09:49)
[2016-09-20] MEDS: DIVALPROEX SODIUM 500 MG TABLET.DR PO SCH ×2 (09:49→21:07)
[2016-09-20] MEDS: CARBIDOPA/LEVODOPA 25/100 MG 1 UDTAB PO SCH ×3 (09:49→18:14)
[2016-09-20] MEDS: SODIUM CHLORIDE 1000 MG TABLET.SOL PO SCH ×2 (09:50→18:12)
[2016-09-20] MEDS: LOSARTAN POTASSIUM 50 MG TABLET PO SCH ×2 (09:50→21:00)
[2016-09-20] MEDS: LINAGLIPTIN 5 MG TABLET PO SCH (09:50)
[2016-09-20] MEDS: DOCUSATE SODIUM 100 MG CAPSULE PO SCH ×2 (09:50→18:12)
[2016-09-20] MEDS: MAGNESIUM OXIDE 400 MG TABLET PO SCH ×2 (09:50→18:13)
[2016-09-20] MEDS: AMLODIPINE BESYLATE 5 MG TABLET PO SCH ×2 (09:51→18:12)
[2016-09-20] MEDS: METFORMIN 500 MG TABLET PO SCH ×2 (09:51→18:12)
[2016-09-20] MEDS: PANTOPRAZOLE 40 MG TABLET.DR PO SCH (09:51)
[2016-09-20] MEDS: CARVEDILOL 6.25 MG TABLET PO SCH ×2 (09:51→18:13)
[2016-09-20] MEDS: Z GUARD REMEDY 2 OZ OINT TP SCH ×2 (09:52→21:09)
[2016-09-20] MEDS: QUETIAPINE FUMARATE 25 MG TABLET PO SCH ×4 (09:56→21:07)
[2016-09-20] MEDS: LORAZEPAM 0.5 MG TABLET PO PRN (09:56)
--- NOTE | 2016-09-20 09:57 | NUR ---
ADMINISTERED ATIVAN 0.5 MG PO PRN FOR ANXIETY, YELLING, GC=844/60, P-74, CONTINUED MONITORING.
[2016-09-20] MEDS: INSULIN DETEMIR 100 UNIT/ML CARTRIDGE SQ SCH ×2 (10:00→22:00)
[2016-09-20] MEDS ORDERED: INSULIN REGULAR, HUMAN 100 UNIT/ML 3 ML VIAL SQ PRN (11:00)
[2016-09-20] MEDS ORDERED: DEXTROSE 50%-WATER 50 ML DISP.SYRIN IV PRN (11:00)
[2016-09-20] MEDS ORDERED: *INSULIN REGULAR(HUMULIN R)HUM 100 UNIT/ML VIAL SQ PRN (11:00)
[2016-09-20] MEDS: BLOOD SUGAR DIAGNOSTIC 1 EACH STRIP VI SCH ×3 (12:00→22:00)
--- NOTE | 2016-09-20 12:36 | NUR ---
I have reviewed this patients psychosocial dated 09/06/16 and I can attest to the accuracy of the information therein. There have been no changes since her last assessment. Pt was oriented x3. Pt. mood was angry and her affect was congruent with her mood. Pt. stated that she was angry because she does not want to take her medication and she wanted to go to a wedding reunion. Pt. began to become agitated and yelled "get out of here" Patient is refusing some medications. Pt's. insight and judgement are poor. Pt. denies visual/ auditory hallucinations. Pt. denies suicidal/homicidal ideations. Addendum: 09/20/16 at 1337 by STEFAN REDD SW I have reviewed this assessment note and I concur with the information provided. No changes are necessary. Stefan Redd, [facility] [id number]
--- NOTE | 2016-09-20 13:01 | NUR ---
Initial Discharge Plan: Patient was residing at [address] [place] [address] ([phone]). workers' compensation hearings officer spoke to patient's sister/ conservator An Tomas ([phone]) who stated that she wants patient to return to [facility] upon discharge. workers' compensation hearings officer attempted to contact patient's brother/conservator Flash Arrieta ([phone]) however, he was unavailable public health social worker left a detailed message with her contact information. public health social worker spoke to Cari ([phone]) from the facility who stated that patient can return upon discharge. workers' compensation hearings officer will help form a safe and proper discharge.
--- NOTE | 2016-09-20 13:17 | NUR ---
WOUND CARE CONSULT: PT PRESENTS WITH RASH TO BUTTOCKS AND PERINEUM WITH IRRITATED SKIN, PRESENT ON ADMISSION. PT ALSO NOTED TO HAVE BREAST FOLD EXCORIATION AND PEELING SKIN ON FEET, PRESENT ON ADMISSION. RECOMMENDATIONS MADE FOR SKIN PROTECTION AND SKIN CARE. DISCUSSED WITH NURSING STAFF. MD IN AGREEMENT WITH PLAN OF CARE. MP SCORE IS 16. Addendum: 09/20/16 at 1318 by RAJENDRA DING Amended: Links added. Addendum: 09/20/16 at 1319 by RAJENDRA FLORESU DEFER TO MD FOR RED SPOTS ON LEFT ARM.
[2016-09-20 16:00] VITALS: BP 128/70
[2016-09-20] MEDS: CLOTRIMAZOLE 1% 15 GM TUBE TP SCH (18:23)
[2016-09-20 20:23] VITALS: BP 140/57
[2016-09-20] MEDS: DOXAZOSIN MESYLATE (1 MG) 1 MG TABLET PO SCH (21:09)
[2016-09-20] MEDS: SIMVASTATIN 20 MG TABLET PO SCH (21:10)
[2016-09-20] MEDS: SENNOSIDES 8.6 MG TABLET PO SCH (21:10)
--- NOTE | 2016-09-20 21:41 | NUR ---
GPS/RN NOTE: PATIENT REFUSED TO TAKE HER NIGHT MEDS, PATIENT YELLED, " NO, GO AWAY." EXPLAINED AGAIN THE BENEFITS, STILL REFUSED HER MEDS.
[2016-09-21] MEDS: BLOOD SUGAR DIAGNOSTIC 1 EACH STRIP VI SCH ×4 (07:45→22:00)
[2016-09-21 08:00] VITALS: BP 119/74
[2016-09-21] MEDS: LINAGLIPTIN 5 MG TABLET PO SCH (08:31)
[2016-09-21] MEDS: DOCUSATE SODIUM 100 MG CAPSULE PO SCH ×2 (08:31→16:44)
[2016-09-21] MEDS: CARBIDOPA/LEVODOPA 25/100 MG 1 UDTAB PO SCH ×3 (08:32→16:44)
[2016-09-21] MEDS: MULTIVIT, IRON, MIN NO. 8, FA 1 TAB TABLET PO SCH (08:32)
[2016-09-21] MEDS: METFORMIN 500 MG TABLET PO SCH ×2 (08:32→16:44)
[2016-09-21] MEDS: PANTOPRAZOLE 40 MG TABLET.DR PO SCH (08:32)
[2016-09-21] MEDS: LEVOTHYROXINE SODIUM 100 MCG TABLET PO SCH (08:33)
[2016-09-21] MEDS: SODIUM CHLORIDE 1000 MG TABLET.SOL PO SCH ×2 (08:33→16:44)
[2016-09-21] MEDS: DIVALPROEX SODIUM 500 MG TABLET.DR PO SCH ×2 (08:33→21:00)
[2016-09-21] MEDS: AMLODIPINE BESYLATE 5 MG TABLET PO SCH ×2 (08:33→16:45)
[2016-09-21] MEDS: MAGNESIUM OXIDE 400 MG TABLET PO SCH ×2 (08:34→16:44)
[2016-09-21] MEDS: LOSARTAN POTASSIUM 50 MG TABLET PO SCH ×2 (08:34→21:00)
[2016-09-21] MEDS: CARVEDILOL 6.25 MG TABLET PO SCH ×2 (08:35→16:45)
[2016-09-21] MEDS: CLOTRIMAZOLE 1% 15 GM TUBE TP SCH ×2 (09:09→17:06)
[2016-09-21] MEDS: QUETIAPINE FUMARATE 25 MG TABLET PO SCH ×4 (09:09→21:00)
[2016-09-21] MEDS: Z GUARD REMEDY 2 OZ OINT TP SCH ×2 (09:10→21:08)
[2016-09-21] MEDS: INSULIN DETEMIR 100 UNIT/ML CARTRIDGE SQ SCH ×2 (10:00→22:00)
--- NOTE | 2016-09-21 10:40 | NUR ---
DR. COOPER IN THE UNIT MADE AWARE THAT PT. REFUSED FOR ACCU CHECK AND LEVEMIR.
[2016-09-21 16:00] VITALS: BP_SYST 112; BP_SYST 147; BP_DIAS 60; BP_DIAS 61
--- NOTE | 2016-09-21 21:00 | NUR ---
PT REFUSED ALL SCHEDULED MEDICATIONS. OFFER 3X, EXPLAIN THE RISK AND BENEFITS OF NOT TAKING HER MEDS. PT STILL REFUSED. PT STATE'S "LEAVE ME ALONE, I'M NOT TAKING ANY MEDS". WILL CONTINUE TO MONITOR.
[2016-09-21] MEDS: SENNOSIDES 8.6 MG TABLET PO SCH (22:00)
[2016-09-21] MEDS: DOXAZOSIN MESYLATE (1 MG) 1 MG TABLET PO SCH (22:00)
[2016-09-21] MEDS: SIMVASTATIN 20 MG TABLET PO SCH (22:00)
--- NOTE | 2016-09-21 22:19 | NUR ---
PT REFUSED BLOOD SUGAR CHECKED. OFFER 3X, EXPLAIN THE RISK AND BENEFITS. PT STILL REFUSED. WILL CONTINUE TO MONITOR.
[2016-09-22] MEDS: PANTOPRAZOLE 40 MG TABLET.DR PO SCH (07:30)
[2016-09-22] MEDS: LEVOTHYROXINE SODIUM 100 MCG TABLET PO SCH (07:30)
[2016-09-22] MEDS: BLOOD SUGAR DIAGNOSTIC 1 EACH STRIP VI SCH ×4 (07:30→22:00)
[2016-09-22 08:00] VITALS: BP 143/74
[2016-09-22] MEDS: CARBIDOPA/LEVODOPA 25/100 MG 1 UDTAB PO SCH ×3 (09:00→17:00)
[2016-09-22] MEDS: LOSARTAN POTASSIUM 50 MG TABLET PO SCH ×2 (09:00→21:00)
[2016-09-22] MEDS: LINAGLIPTIN 5 MG TABLET PO SCH (09:00)
[2016-09-22] MEDS: SODIUM CHLORIDE 1000 MG TABLET.SOL PO SCH ×2 (09:00→17:00)
[2016-09-22] MEDS: QUETIAPINE FUMARATE 25 MG TABLET PO SCH ×4 (09:00→21:00)
[2016-09-22] MEDS: DOCUSATE SODIUM 100 MG CAPSULE PO SCH ×2 (09:00→17:00)
[2016-09-22] MEDS: CARVEDILOL 6.25 MG TABLET PO SCH ×2 (09:00→17:00)
[2016-09-22] MEDS: MULTIVIT, IRON, MIN NO. 8, FA 1 TAB TABLET PO SCH (09:00)
[2016-09-22] MEDS: METFORMIN 500 MG TABLET PO SCH ×2 (09:00→17:00)
[2016-09-22] MEDS: AMLODIPINE BESYLATE 5 MG TABLET PO SCH ×2 (09:00→17:00)
[2016-09-22] MEDS: DIVALPROEX SODIUM 500 MG TABLET.DR PO SCH ×2 (09:00→21:00)
[2016-09-22] MEDS: MAGNESIUM OXIDE 400 MG TABLET PO SCH ×2 (09:00→17:00)
[2016-09-22] MEDS: Z GUARD REMEDY 2 OZ OINT TP SCH ×2 (09:55→21:20)
[2016-09-22] MEDS: CLOTRIMAZOLE 1% 15 GM TUBE TP SCH ×2 (09:56→17:21)
[2016-09-22] MEDS: INSULIN DETEMIR 100 UNIT/ML CARTRIDGE SQ SCH ×2 (10:00→22:00)
[2016-09-22 16:00] VITALS: BP 149/60
--- NOTE | 2016-09-22 17:14 | NUR ---
PT. REFUSED TO TAKE PO MEDS, EXPLAINED ON THE IMPORTANCE AND THE RISK OF NOT TAKING THE MEDS AND PT. STILL REFUSING AND SAID "NO, I DON'T WANT IT".
--- NOTE | 2016-09-22 21:00 | NUR ---
PT. REFUSED TO TAKE SCHEDULED MEDS. EXPLAIN THE RISK AND IMPORTANCE OF NOT TAKING HER MEDS. PT STATE'S "I DON'T LIKE TO TAKE ANY MEDS". WILL CONTINUE TO MONITOR.
[2016-09-22] MEDS: SENNOSIDES 8.6 MG TABLET PO SCH (22:00)
[2016-09-22] MEDS: DOXAZOSIN MESYLATE (1 MG) 1 MG TABLET PO SCH (22:00)
[2016-09-22] MEDS: SIMVASTATIN 20 MG TABLET PO SCH (22:00)
--- NOTE | 2016-09-22 22:00 | NUR ---
PT REFUSED BLOOD SUGAR CHECKED. OFFER 3X, EXPLAIN THE RISK AND BENEFITS. PT STILL REFUSED. WILL CONTINUE TO MONITOR.
[2016-09-23] MEDS: BLOOD SUGAR DIAGNOSTIC 1 EACH STRIP VI SCH ×4 (07:30→22:00)
[2016-09-23 08:00] VITALS: BP 137/79
[2016-09-23] MEDS: MULTIVIT, IRON, MIN NO. 8, FA 1 TAB TABLET PO SCH (08:38)
[2016-09-23] MEDS: DIVALPROEX SODIUM 500 MG TABLET.DR PO SCH ×2 (08:38→21:40)
[2016-09-23] MEDS: PANTOPRAZOLE 40 MG TABLET.DR PO SCH (08:39)
[2016-09-23] MEDS: LEVOTHYROXINE SODIUM 100 MCG TABLET PO SCH (08:39)
[2016-09-23] MEDS: CARVEDILOL 6.25 MG TABLET PO SCH ×2 (08:39→17:00)
[2016-09-23] MEDS: LOSARTAN POTASSIUM 50 MG TABLET PO SCH ×2 (08:39→21:39)
[2016-09-23] MEDS: CARBIDOPA/LEVODOPA 25/100 MG 1 UDTAB PO SCH ×3 (08:39→17:00)
[2016-09-23] MEDS: SODIUM CHLORIDE 1000 MG TABLET.SOL PO SCH ×2 (08:39→17:00)
[2016-09-23] MEDS: AMLODIPINE BESYLATE 5 MG TABLET PO SCH ×2 (08:39→17:00)
[2016-09-23] MEDS: METFORMIN 500 MG TABLET PO SCH ×2 (08:39→17:00)
[2016-09-23] MEDS: DOCUSATE SODIUM 100 MG CAPSULE PO SCH ×2 (08:40→17:00)
[2016-09-23] MEDS: MAGNESIUM OXIDE 400 MG TABLET PO SCH ×2 (08:40→17:00)
[2016-09-23] MEDS: LINAGLIPTIN 5 MG TABLET PO SCH (08:40)
[2016-09-23] MEDS: QUETIAPINE FUMARATE 25 MG TABLET PO SCH ×4 (08:42→21:41)
[2016-09-23] MEDS: CLOTRIMAZOLE 1% 15 GM TUBE TP SCH ×2 (08:47→17:00)
[2016-09-23] MEDS: Z GUARD REMEDY 2 OZ OINT TP SCH ×2 (08:49→21:41)
[2016-09-23] MEDS: INSULIN DETEMIR 100 UNIT/ML CARTRIDGE SQ SCH ×2 (10:00→22:00)
[2016-09-23 16:00] VITALS: BP 123/73
--- NOTE | 2016-09-23 17:17 | NUR ---
GPS RN: PATIENT REFUSED ACCUCHECK AC DURING DAY SHIFT. PATIENT ALSO REFUSED TO TAKE HER MEDICATIONS FOR 1300 AND 1700. WHEN THIS MOBILE UI DESIGNER TRIES TO EXPLAIN THE IMPORTANCE AND THE PURPOSE OF MEDICATIONS AND BLOOD GLUCOSE CONTROL, THE PATIENT BECOMES INCREASINGLY AGITATED AND STARTS TO YELL "NO! NO! I DON'T WANT IT! GET OUT OF HERE!" PATIENT IS LYING IN BED, NO S/S OF PHYSICAL DISTRESS, VS STABLE. WILL CONTINUE TO MONITOR.
--- NOTE | 2016-09-23 19:55 | NUR ---
GPS/OPTIONS TRADER; RECEIVED PT. IN BED AWAKE, TALKING TO HERSELF, CONFUSED. BREATHING NON LABORED. NO MENTIONED OF PAIN. BED ON LOWER POSITION AND LOCKED FOR SAFETY. SIDE RAILS ARE UP FOR SAFETY. WILL CONTINUE TO MONITOR.
[2016-09-23 20:00] VITALS: BP 123/57
--- NOTE | 2016-09-23 20:45 | NUR ---
GPS/BRAKE RIDER; RE CHECKED BP ON RT ARM 161/ 69, P 85. AT THIS TIME SCREAMING TRYING TO REFUSE HER BP CHECK.
--- NOTE | 2016-09-23 21:30 | NUR ---
GPS/INSPECTOR ROUGH CASTINGS; PT REFUSED ALL MEDS. CHARGE NURSE MADE AWARE.
[2016-09-23] MEDS: DOXAZOSIN MESYLATE (1 MG) 1 MG TABLET PO SCH (21:43)
[2016-09-23] MEDS: SENNOSIDES 8.6 MG TABLET PO SCH (21:44)
[2016-09-23] MEDS: SIMVASTATIN 20 MG TABLET PO SCH (21:45)
--- NOTE | 2016-09-23 22:00 | NUR ---
GPS/SPINNING MULE OPERATOR; LEVEMIR INSULIN NOT GIVEN PT REFUSED BS CHECKED.
--- NOTE | 2016-09-23 22:00 | NUR ---
GPS/SLUDGE CONTROL OPERATOR; PT BADLY REFUSED BS CHECKED. SCREAMING. KEEP SAYING I WANT MY BROTHER.
--- NOTE | 2016-09-24 02:00 | NUR ---
GPS/SEED ANALYSIS LABORATORY ASSISTANT; PT AWAKE, INCONTINENT OF URINE. RAHEEM ANAL CARE RENDERED. REMEDY Z GUARD CREAM APPLIED TO PERINEAL, THIGHS AREA. DIAPER CHANGED. TURNED AND REPOSITIONED TO LT SIDE WITH PILLOWS SUPPORT TO HER BACK AND IN BETWEEN LEGS. PT SCREAMING , YELLING AT THIS TIME. WILL CONTINUE TO MONITOR.
--- NOTE | 2016-09-24 06:39 | NUR ---
GPS/RESIDENTIAL SALES EXECUTIVE; SLEPT FOR 5.5 HOURS LAST NIGHT. EASILY AGITATED WHEN PERINEAL CARE AND EVEN TO REPOSITIONED. SLEEPING AT THIS TIME. CONTINUE TO MONITOR. WILL ENDORSE TO THE DAY SHIFT NURSE.
[2016-09-24] MEDS: BLOOD SUGAR DIAGNOSTIC 1 EACH STRIP VI SCH ×4 (07:30→21:51)
[2016-09-24 08:00] VITALS: BP 155/69
[2016-09-24] MEDS: INSULIN DETEMIR 100 UNIT/ML CARTRIDGE SQ SCH ×2 (10:00→21:51)
[2016-09-24] MEDS: MULTIVIT, IRON, MIN NO. 8, FA 1 TAB TABLET PO SCH (11:36)
[2016-09-24] MEDS: DIVALPROEX SODIUM 500 MG TABLET.DR PO SCH ×2 (11:37→21:00)
[2016-09-24] MEDS: LOSARTAN POTASSIUM 50 MG TABLET PO SCH ×2 (11:37→21:00)
[2016-09-24] MEDS: LORAZEPAM 0.5 MG TABLET PO PRN (11:37)
[2016-09-24] MEDS: SODIUM CHLORIDE 1000 MG TABLET.SOL PO SCH ×2 (11:37→17:00)
--- NOTE | 2016-09-24 11:37 | NUR ---
administered ativan 0.5 mg po prn for anxiety, yelling, v/s taken bp-155/69, p-78, continued monitoring.
[2016-09-24] MEDS: CARVEDILOL 6.25 MG TABLET PO SCH ×2 (11:38→17:00)
[2016-09-24] MEDS: MAGNESIUM OXIDE 400 MG TABLET PO SCH ×2 (11:38→17:00)
[2016-09-24] MEDS: LEVOTHYROXINE SODIUM 100 MCG TABLET PO SCH (11:38)
[2016-09-24] MEDS: CARBIDOPA/LEVODOPA 25/100 MG 1 UDTAB PO SCH ×3 (11:38→17:00)
[2016-09-24] MEDS: DOCUSATE SODIUM 100 MG CAPSULE PO SCH ×2 (11:38→17:00)
[2016-09-24] MEDS: AMLODIPINE BESYLATE 5 MG TABLET PO SCH ×2 (11:39→17:00)
[2016-09-24] MEDS: METFORMIN 500 MG TABLET PO SCH ×2 (11:39→17:00)
[2016-09-24] MEDS: PANTOPRAZOLE 40 MG TABLET.DR PO SCH (11:39)
[2016-09-24] MEDS: CLOTRIMAZOLE 1% 15 GM TUBE TP SCH ×2 (11:41→19:00)
[2016-09-24] MEDS: LINAGLIPTIN 5 MG TABLET PO SCH (11:41)
[2016-09-24] MEDS: Z GUARD REMEDY 2 OZ OINT TP SCH ×2 (11:41→21:49)
[2016-09-24] MEDS: QUETIAPINE FUMARATE 25 MG TABLET PO SCH ×4 (11:47→21:00)
[2016-09-24 16:00] VITALS: BP 123/61
--- NOTE | 2016-09-24 19:03 | NUR ---
PATIENT REFUSED 1700 MEDICATION, REFUSED ACCU CHECK, PT STATE " I AM GOING TO [facility], I HAVE A FOUR JUDGES". MD 'S AWARE OF, CONTINUED MONITORING, ENDORSED ONCOMING NURSE FOR CONTINUATION OF CARE.
[2016-09-24 20:07] VITALS: BP 124/58
[2016-09-24] MEDS: DOXAZOSIN MESYLATE (1 MG) 1 MG TABLET PO SCH (21:49)
[2016-09-24] MEDS: SENNOSIDES 8.6 MG TABLET PO SCH (21:50)
[2016-09-24] MEDS: SIMVASTATIN 20 MG TABLET PO SCH (21:51)
--- NOTE | 2016-09-24 23:41 | NUR ---
GPS RN NOTE, PATIENT HAD A UA DONE ON 09/19/16 THAT RESULTED WITH URINE BACTERIA 1 + H, URINE WBC 11-20 H, WITH A URINE CULTURE PENDING. PAGED [facility] AND INFORMED OLGA LANDRY OF MY FINDINGS. OLGA HOPKINS ORDERED A CBC, BMP IN AM, AND TO HAVE THE AM NURSE FOLLOW UP IN THE AM ROUNDING DOCTOR. ALL ORDERS NOTED NAD CARRIED OUT. WILL CONTINUE TO MONITOR THIS PATIENT.
--- NOTE | 2016-09-25 00:26 | NUR ---
Pt has been easily irritable, hypoverbal, unkempt, & refusing her meds/accucheck.
[2016-09-25] MEDS: BLOOD SUGAR DIAGNOSTIC 1 EACH STRIP VI SCH ×4 (07:30→17:02)
[2016-09-25] MEDS: PANTOPRAZOLE 40 MG TABLET.DR PO SCH (07:41)
[2016-09-25] MEDS: LEVOTHYROXINE SODIUM 100 MCG TABLET PO SCH (07:41)
[2016-09-25 08:00] VITALS: BP 132/73
[2016-09-25] MEDS: DOCUSATE SODIUM 100 MG CAPSULE PO SCH ×2 (08:11→17:00)
[2016-09-25] MEDS: MAGNESIUM OXIDE 400 MG TABLET PO SCH ×2 (08:11→17:00)
[2016-09-25] MEDS: DIVALPROEX SODIUM 500 MG TABLET.DR PO SCH ×2 (08:12→21:32)
[2016-09-25] MEDS: QUETIAPINE FUMARATE 25 MG TABLET PO SCH ×4 (08:12→21:36)
[2016-09-25] MEDS: CARVEDILOL 6.25 MG TABLET PO SCH ×2 (08:12→17:00)
[2016-09-25] MEDS: SODIUM CHLORIDE 1000 MG TABLET.SOL PO SCH ×2 (08:12→17:00)
[2016-09-25] MEDS: MULTIVIT, IRON, MIN NO. 8, FA 1 TAB TABLET PO SCH (08:12)
[2016-09-25] MEDS: AMLODIPINE BESYLATE 5 MG TABLET PO SCH ×2 (08:13→17:00)
[2016-09-25] MEDS: METFORMIN 500 MG TABLET PO SCH ×2 (08:13→17:00)
[2016-09-25] MEDS: LINAGLIPTIN 5 MG TABLET PO SCH (08:13)
[2016-09-25] MEDS: CARBIDOPA/LEVODOPA 25/100 MG 1 UDTAB PO SCH ×3 (08:14→17:00)
[2016-09-25] MEDS: CLOTRIMAZOLE 1% 15 GM TUBE TP SCH ×2 (08:47→17:00)
[2016-09-25] MEDS: Z GUARD REMEDY 2 OZ OINT TP SCH ×2 (08:47→21:33)
[2016-09-25] MEDS: LOSARTAN POTASSIUM 50 MG TABLET PO SCH ×2 (08:50→21:35)
[2016-09-25] MEDS: INSULIN DETEMIR 100 UNIT/ML CARTRIDGE SQ SCH ×2 (10:00→21:17)
[2016-09-25 16:01] VITALS: BP 138/70
[2016-09-25 19:43] VITALS: BP_SYST 124; BP_SYST 153; BP_DIAS 58; BP_DIAS 72
[2016-09-25 20:27] LABS: CALCIUM, SERUM 8.6 mg/dL (8.5-10.1); CREATININE 0.9 mg/dL (0.6-1.3); POTASSIUM 4.8 mmol/L (3.5-5.1)
--- NOTE | 2016-09-25 21:00 | NUR ---
GPS RN NOTE: LABS WAS DRAWN WITH A RESULT OF GLUCOSE = 436. PATIENT IS AWAKE, ALERT AND ORIENTED X 1, CONFUSED AND DELUSIONAL, NO S/S OF HYPOGLYCEMIA AND HYPERGLYCEMIA NOTED. NOTIFIED DR. HOPKINS WITH ORDER OF MILD SLIDING SCALE NOTED AND CARRIED OUT. WILL CONTINUE TO MONITOR
[2016-09-25 21:14] LABS: BASOPHILS % (AUTO) 0.2 % (0.0-2.0); EOSINOPHILS # (AUTO) 0.3 /CMM (0.0-0.7); HEMATOCRIT 41 % (33-45); HEMOGLOBIN 13.3 g/dL (11.5-14.8); LYMPHOCYTES # (AUTO) 1.7 /CMM (0.8-4.8); LYMPHOCYTES % (AUTO) 16.3 % (20.0-44.0); MEAN CORPUSCULAR HEMOGLOBIN 29 PG (26.0-33.0); MEAN CORPUSCULAR HGB CONC 32 g/dl (31.0-36.0); MEAN CORPUSCULAR VOLUME 90 fL (82-100); MONOCYTES # (AUTO) 0.6 /CMM (0.1-1.30); MONOCYTES % (AUTO) 6.1 % (2.0-12.0); NEUTROPHILS # (AUTO) 7.6 /CMM (1.8-8.9); NEUTROPHILS % (AUTO) 74.4 % (43.0-81.0); PLATELET COUNT (AUTO) 210 /CMM (150-450); RDW COEFFICIENT OF VARIATION 14.7 (11.5-15.0); RED BLOOD CELL COUNT(AUTO) 4.59 MIL/uL (4.0-5.2); WHITE BLOOD COUNT (AUTO) 10.2 K/uL (4.3-11.0)
[2016-09-25] MEDS: INSULIN REGULAR, HUMAN 100 UNIT/ML 3 ML VIAL SQ PRN (21:17)
[2016-09-25] MEDS ORDERED: DEXTROSE 50%-WATER 50 ML DISP.SYRIN IV PRN (21:30)
[2016-09-25] MEDS: SIMVASTATIN 20 MG TABLET PO SCH (21:58)
[2016-09-25] MEDS: SENNOSIDES 8.6 MG TABLET PO SCH (21:59)
[2016-09-25] MEDS: DOXAZOSIN MESYLATE (1 MG) 1 MG TABLET PO SCH (22:00)
--- NOTE | 2016-09-25 22:00 | NUR ---
GPS RN NOTE: PATIENT BLOOD SUGAR = 379, PATIENT STABLE, NO SOB, NO ACUTE DISTRESS, BREATHING EVEN AND UNLABORED, NO S/S OF HYPOGLYCEMIA/HYPERGLYCEMIA NOTED. WILL CONTINUE TO MONITOR
[2016-09-25] MEDS: BLOOD SUGAR DIAGNOSTIC 1 EACH STRIP IN SCH (22:27)
[2016-09-26] MEDS: LEVOTHYROXINE SODIUM 100 MCG TABLET PO SCH (07:30)
[2016-09-26] MEDS: PANTOPRAZOLE 40 MG TABLET.DR PO SCH (07:30)
[2016-09-26] MEDS: BLOOD SUGAR DIAGNOSTIC 1 EACH STRIP IN SCH ×4 (08:00→21:35)
[2016-09-26] MEDS: INSULIN REGULAR, HUMAN 100 UNIT/ML 3 ML VIAL SQ PRN ×3 (08:01→17:47)
[2016-09-26 08:12] VITALS: BP 105/77
[2016-09-26] MEDS: DOCUSATE SODIUM 100 MG CAPSULE PO SCH ×2 (08:41→17:00)
[2016-09-26] MEDS: CARVEDILOL 6.25 MG TABLET PO SCH ×2 (08:42→17:00)
[2016-09-26] MEDS: LOSARTAN POTASSIUM 50 MG TABLET PO SCH ×2 (08:46→21:00)
[2016-09-26] MEDS: MAGNESIUM OXIDE 400 MG TABLET PO SCH ×2 (08:47→17:00)
[2016-09-26] MEDS: METFORMIN 500 MG TABLET PO SCH ×2 (08:47→17:00)
[2016-09-26] MEDS: AMLODIPINE BESYLATE 5 MG TABLET PO SCH ×2 (08:47→17:00)
[2016-09-26] MEDS: DIVALPROEX SODIUM 500 MG TABLET.DR PO SCH ×2 (08:47→21:22)
[2016-09-26] MEDS: CARBIDOPA/LEVODOPA 25/100 MG 1 UDTAB PO SCH ×3 (08:48→17:00)
[2016-09-26] MEDS: SODIUM CHLORIDE 1000 MG TABLET.SOL PO SCH ×2 (08:48→17:00)
[2016-09-26] MEDS: QUETIAPINE FUMARATE 25 MG TABLET PO SCH ×2 (08:48→13:00)
[2016-09-26] MEDS: CLOTRIMAZOLE 1% 15 GM TUBE TP SCH ×2 (08:49→17:00)
[2016-09-26] MEDS: MULTIVIT, IRON, MIN NO. 8, FA 1 TAB TABLET PO SCH (08:49)
[2016-09-26] MEDS: Z GUARD REMEDY 2 OZ OINT TP SCH ×2 (08:49→21:20)
[2016-09-26] MEDS: LINAGLIPTIN 5 MG TABLET PO SCH (08:49)
[2016-09-26] MEDS ORDERED: QUETIAPINE FUMARATE 25 MG TABLET PO SCH (09:00)
[2016-09-26] MEDS: INSULIN DETEMIR 100 UNIT/ML CARTRIDGE SQ SCH ×2 (10:03→21:37)
--- NOTE | 2016-09-26 10:14 | NUR ---
LUIS confirmed with Cari from [facility] [address] [place] [address] ([phone]) that pt. is returning back tomorrow. Cari requested paperwork that was faxed to [phone].
--- NOTE | 2016-09-26 15:51 | NUR ---
LUIS spoke with patient's sister/ conservator An Tomas ([phone]) on the phone regarding pt's discharge, then met with her in person. Discharge was discussed but An wasn't happy with the plan to discharge patient tomorrow. LUIS notified MD and called An. Discharge will be held until Sunday.
[2016-09-26] MEDS ORDERED: HALOPERIDOL 5 MG TABLET PO ONE (19:30)
--- NOTE | 2016-09-26 19:38 | NUR ---
GPS RN NOTES RECEIVED ON BED,AWAKE AND RESPONSIVE,ANSWER DIFFERENT THINGS TO QUESTION.WILL CONTINUE TO MONITOR BEHAVIOR
--- NOTE | 2016-09-26 21:00 | NUR ---
GPS RN NOTES DUE PO MEDS GIVEN EXCEPT BP MEDS DUE TO LOW BLOOD PRESSURE 118/59
[2016-09-26] MEDS: DOXAZOSIN MESYLATE (1 MG) 1 MG TABLET PO SCH (21:22)
[2016-09-26] MEDS: SIMVASTATIN 20 MG TABLET PO SCH (21:23)
[2016-09-26] MEDS: SENNOSIDES 8.6 MG TABLET PO SCH (21:23)
[2016-09-26] MEDS: QUETIAPINE FUMARATE 100 MG TABLET PO SCH ×2 (21:23→21:40)
--- NOTE | 2016-09-26 21:45 | NUR ---
GPS RN NOTES OFFERED TO CHECK BLOOD SUGAR BUT REFUSED
[2016-09-27] MEDS: BLOOD SUGAR DIAGNOSTIC 1 EACH STRIP IN SCH ×4 (06:01→22:17)
--- NOTE | 2016-09-27 06:15 | NUR ---
GPS RN NOTES ACCU-CHECK BLOOD SUGAR CHECK 260,NEGATIVE FOR S/S OF HYPERGLYCEMIA.WILL COVER BY DAYSHIFT WITH HUMULIN R 6 UNITS PER SLIDING SCALE.
[2016-09-27 08:11] VITALS: BP 115/50
[2016-09-27] MEDS: MULTIVIT, IRON, MIN NO. 8, FA 1 TAB TABLET PO SCH (08:41)
[2016-09-27] MEDS: CARVEDILOL 6.25 MG TABLET PO SCH ×2 (08:41→16:09)
[2016-09-27] MEDS: LOSARTAN POTASSIUM 50 MG TABLET PO SCH ×2 (08:42→21:12)
[2016-09-27] MEDS: LEVOTHYROXINE SODIUM 100 MCG TABLET PO SCH (08:42)
[2016-09-27] MEDS: LINAGLIPTIN 5 MG TABLET PO SCH (08:43)
[2016-09-27] MEDS: DOCUSATE SODIUM 100 MG CAPSULE PO SCH ×2 (08:43→16:10)
[2016-09-27] MEDS: DIVALPROEX SODIUM 500 MG TABLET.DR PO SCH ×2 (08:43→21:12)
[2016-09-27] MEDS: SODIUM CHLORIDE 1000 MG TABLET.SOL PO SCH ×2 (08:43→16:10)
[2016-09-27] MEDS: HALOPERIDOL 5 MG TABLET PO SCH (08:43)
[2016-09-27] MEDS: PANTOPRAZOLE 40 MG TABLET.DR PO SCH (08:44)
[2016-09-27] MEDS: CARBIDOPA/LEVODOPA 25/100 MG 1 UDTAB PO SCH ×3 (08:44→16:09)
[2016-09-27] MEDS: MAGNESIUM OXIDE 400 MG TABLET PO SCH ×2 (08:44→16:09)
[2016-09-27] MEDS: AMLODIPINE BESYLATE 5 MG TABLET PO SCH ×2 (08:44→16:09)
[2016-09-27] MEDS: METFORMIN 500 MG TABLET PO SCH ×2 (08:44→16:09)
[2016-09-27] MEDS: Z GUARD REMEDY 2 OZ OINT TP SCH ×2 (08:46→21:12)
[2016-09-27] MEDS: CLOTRIMAZOLE 1% 15 GM TUBE TP SCH ×2 (08:46→16:10)
[2016-09-27] MEDS: INSULIN REGULAR, HUMAN 100 UNIT/ML 3 ML VIAL SQ PRN ×3 (08:49→22:23)
[2016-09-27] MEDS ORDERED: HALOPERIDOL 5 MG TABLET PO SCH (09:00)
[2016-09-27] MEDS: INSULIN DETEMIR 100 UNIT/ML CARTRIDGE SQ SCH ×2 (09:04→22:00)
[2016-09-27] MEDS ORDERED: HALOPERIDOL DECANOATE IM 100 MG/ML AMPUL IM ONE (14:00)
[2016-09-27 16:04] VITALS: BP 130/79
[2016-09-27] MEDS: LORAZEPAM 0.5 MG TABLET PO PRN (16:08)
--- NOTE | 2016-09-27 16:08 | NUR ---
ADMINISTERED ATIVAN 0.5 MG PO PRN FOR ANXIETY, YELLING, PARANOIA, V/S STABLE, CONTINUED MONITORING.
--- NOTE | 2016-09-27 19:30 | NUR ---
GPS RN NOTES RECEIVED ON BED AWAKE,VERBALLY RESPONSIVE,ABLE TO VERBALIZED NEEDS.WITH FLIGHT OF IDEAS AT TIMES.CALM BUT EASILY AGITATED.ALAYNA CONTINUE TO MONITOR BEHAVIOR
[2016-09-27 20:00] VITALS: BP 124/78
[2016-09-27 20:37] VITALS: BP 124/78
[2016-09-27] MEDS: QUETIAPINE FUMARATE 100 MG TABLET PO SCH ×2 (21:14→22:27)
[2016-09-27] MEDS: SENNOSIDES 8.6 MG TABLET PO SCH (21:14)
[2016-09-27] MEDS: DOXAZOSIN MESYLATE (1 MG) 1 MG TABLET PO SCH (21:14)
[2016-09-27] MEDS: SIMVASTATIN 20 MG TABLET PO SCH (21:14)
--- NOTE | 2016-09-27 21:30 | NUR ---
GPS RN NOTES DUE PO MEDS ADMINISTERED,TAKEN WELL.
--- NOTE | 2016-09-27 22:00 | NUR ---
GPS RN NOTES BLOOD SUGAR CHECK 168,COVERED WITH 3 UNITS HUMULIN R PER SLIDING SCALE.LEVEMIR 12 UNITS HELD EASILY DROPS OF BLOOD SUGAR IN THE MORNING
[2016-09-28] MEDS: BLOOD SUGAR DIAGNOSTIC 1 EACH STRIP IN SCH ×4 (07:30→21:47)
[2016-09-28 08:00] VITALS: BP 106/50
[2016-09-28] MEDS: PANTOPRAZOLE 40 MG TABLET.DR PO SCH (08:35)
[2016-09-28] MEDS: DIVALPROEX SODIUM 500 MG TABLET.DR PO SCH ×2 (08:36→21:28)
[2016-09-28] MEDS: DOCUSATE SODIUM 100 MG CAPSULE PO SCH ×2 (08:36→17:20)
[2016-09-28] MEDS: LEVOTHYROXINE SODIUM 100 MCG TABLET PO SCH (08:36)
[2016-09-28] MEDS: MAGNESIUM OXIDE 400 MG TABLET PO SCH ×2 (08:37→17:20)
[2016-09-28] MEDS: METFORMIN 500 MG TABLET PO SCH ×2 (08:37→17:21)
[2016-09-28] MEDS: HALOPERIDOL 5 MG TABLET PO SCH (08:37)
[2016-09-28] MEDS: CARBIDOPA/LEVODOPA 25/100 MG 1 UDTAB PO SCH ×3 (08:37→17:20)
[2016-09-28] MEDS: SODIUM CHLORIDE 1000 MG TABLET.SOL PO SCH ×2 (08:37→17:20)
[2016-09-28] MEDS: LINAGLIPTIN 5 MG TABLET PO SCH (08:38)
[2016-09-28] MEDS: MULTIVIT, IRON, MIN NO. 8, FA 1 TAB TABLET PO SCH (08:38)
[2016-09-28] MEDS: CLOTRIMAZOLE 1% 15 GM TUBE TP SCH ×2 (08:49→17:33)
[2016-09-28] MEDS: AMLODIPINE BESYLATE 5 MG TABLET PO SCH ×2 (08:49→17:00)
[2016-09-28] MEDS: CARVEDILOL 6.25 MG TABLET PO SCH ×2 (08:49→17:34)
[2016-09-28] MEDS: Z GUARD REMEDY 2 OZ OINT TP SCH ×2 (08:50→21:47)
[2016-09-28] MEDS: LOSARTAN POTASSIUM 50 MG TABLET PO SCH ×2 (08:50→21:28)
[2016-09-28] MEDS: INSULIN DETEMIR 100 UNIT/ML CARTRIDGE SQ SCH ×2 (10:00→21:44)
--- NOTE | 2016-09-28 10:21 | NUR ---
farrowing worker spoke to patient's sister/ conservator An Tomas ([phone]) to inform her that patient will be returning to [address] [place] [address] ([phone]) tomorrow September 29, 2016. An Tomas (conservator) was agreeable with the discharge plan.
[2016-09-28] MEDS: SULFAMETH/TRIMETH 800/160 MG 1 UDTAB TABLET PO SCH ×2 (12:14→21:28)
[2016-09-28 16:04] VITALS: BP 129/59
[2016-09-28] MEDS: INSULIN REGULAR, HUMAN 100 UNIT/ML 3 ML VIAL SQ PRN ×2 (17:51→21:45)
--- NOTE | 2016-09-28 19:46 | NUR ---
GPS RN NOTES RECEIVED ON BED AWAKE BUT CALM AT THIS TIME, A/O X 2 , VERBALLY RESPONSIVE, ABLE TO VERBALIZE NEEDS. FALL AND SAFETY MEASURES APPLIED. WILL CONTINUE TO MONITOR BEHAVIOR.
[2016-09-28 20:00] VITALS: BP 128/54
[2016-09-28] MEDS: SIMVASTATIN 20 MG TABLET PO SCH (21:29)
[2016-09-28] MEDS: DOXAZOSIN MESYLATE (1 MG) 1 MG TABLET PO SCH (21:29)
[2016-09-28] MEDS: SENNOSIDES 8.6 MG TABLET PO SCH (21:29)
[2016-09-28] MEDS: QUETIAPINE FUMARATE 100 MG TABLET PO SCH ×2 (21:29→22:37)
--- NOTE | 2016-09-29 07:15 | NUR ---
RN EOS NOTE; PT SLEPT WELL DURING THE NIGHT, NO ANY DISTRESS NOTED. ALL PRESCRIBED MEDS TOLERATED WELL, ENDORSED TO DAY SHIFT RN FOR CONTINUITY OF CARE.
[2016-09-29] MEDS: BLOOD SUGAR DIAGNOSTIC 1 EACH STRIP IN SCH ×2 (07:30→12:00)
[2016-09-29 08:00] VITALS: BP 123/65
[2016-09-29] MEDS: METFORMIN 500 MG TABLET PO SCH (08:46)
[2016-09-29] MEDS: MAGNESIUM OXIDE 400 MG TABLET PO SCH (08:46)
[2016-09-29] MEDS: DIVALPROEX SODIUM 500 MG TABLET.DR PO SCH (08:46)
[2016-09-29] MEDS: LINAGLIPTIN 5 MG TABLET PO SCH (08:46)
[2016-09-29] MEDS: MULTIVIT, IRON, MIN NO. 8, FA 1 TAB TABLET PO SCH (08:46)
[2016-09-29] MEDS: LEVOTHYROXINE SODIUM 100 MCG TABLET PO SCH (08:46)
[2016-09-29] MEDS: LOSARTAN POTASSIUM 50 MG TABLET PO SCH (08:46)
[2016-09-29 08:47] VITALS: BP 123/65
[2016-09-29] MEDS: HALOPERIDOL 5 MG TABLET PO SCH (08:47)
[2016-09-29] MEDS: CARBIDOPA/LEVODOPA 25/100 MG 1 UDTAB PO SCH ×2 (08:47→12:40)
[2016-09-29] MEDS: PANTOPRAZOLE 40 MG TABLET.DR PO SCH (08:47)
[2016-09-29] MEDS: SODIUM CHLORIDE 1000 MG TABLET.SOL PO SCH (08:47)
[2016-09-29] MEDS: AMLODIPINE BESYLATE 5 MG TABLET PO SCH (08:47)
[2016-09-29] MEDS: DOCUSATE SODIUM 100 MG CAPSULE PO SCH (08:47)
[2016-09-29] MEDS: SULFAMETH/TRIMETH 800/160 MG 1 UDTAB TABLET PO SCH (08:47)
[2016-09-29] MEDS: CARVEDILOL 6.25 MG TABLET PO SCH (08:47)
[2016-09-29] MEDS: Z GUARD REMEDY 2 OZ OINT TP SCH (09:37)
[2016-09-29] MEDS: CLOTRIMAZOLE 1% 15 GM TUBE TP SCH (09:37)
[2016-09-29] MEDS: INSULIN DETEMIR 100 UNIT/ML CARTRIDGE SQ SCH (10:00)
--- NOTE | 2016-09-29 11:13 | NUR ---
DR. TRIPP GAVE AN ORDER TO D/C HOLD AND D/C TO [facility]. WITHOUT DISTRESS, DENIES SUICIDAL AND HOMICIDAL AND TO FOLLOW UP WITH PSYCH AND MEDICAL DOCTORS.
--- NOTE | 2016-09-29 13:27 | NUR ---
OLGA HOPKINS MADE AWARE OF THE DISCHARGE AND AWARE THAT PT. REFUSED ACCU CHECK AND REFUSED LEVEMIR INJECTION AND SAID OK FOR DISCHARGE AND HE RECONCILED THE MEDS. BELONGINGS READY, PICTURES TAKEN FOR THE SKIN ISSUES AND REPORT GIVEN TO JOSELITO OVER THE FACILITY.
--- NOTE | 2016-09-29 14:07 | NUR ---
Discharge note: Pt. discharged back to [place] [id number] [facility] [address] ([phone]) .clerical and office support workers spoke to patient's sister/ conservator An Tomas ([phone]) was notified and agreed with discharge plan. Discharge information has been provided to the facility and discharge paperwork has been signed.
--- NOTE | 2016-09-29 14:30 | NUR ---
PT. LEFT THE UNIT VIA AMBULANCE AND TRANSPORTED VIA A GURNEY WITH BELONGINGS. PT. LEFT THE UNIT WITHOUT DISTRESS AND ON STABLE CONDITION. V/S TAKEN: BP 116/62, CA 77, RR 18, TEMP 97.6 AND OXYGEN SAT 97%.
== END 2016-09-29 14:30 | DRG 885 ==
LOC: ER 15:10 → GPS 15:15 → UNDODISIN 16:21
PROVIDERS: ADMIT Psychiatry & Neurology Psychiatry; ATTEND Family Medicine
DX: F25.9 Schizoaffective disorder, unspecified (principal); N17.0 Acute kidney failure with tubular necrosis; E11.65 Type 2 diabetes mellitus with hyperglycemia; E44.1 Mild protein-calorie malnutrition; N39.0 Urinary tract infection, site not specified; F29 Unspecified psychosis not due to a substance or known physiological condition; F03.90 Unspecified dementia, unspecified severity, without behavioral disturbance, psychotic disturbance, mood disturbance, and anxiety; Z73.6 Limitation of activities due to disability; E03.9 Hypothyroidism, unspecified; E78.5 Hyperlipidemia, unspecified; I10 Essential (primary) hypertension; B96.20 Unspecified Escherichia coli [E. coli] as the cause of diseases classified elsewhere; F32.9 Major depressive disorder, single episode, unspecified; G20 Parkinson's disease; D72.829 Elevated white blood cell count, unspecified; E88.09 Other disorders of plasma-protein metabolism, not elsewhere classified; K21.9 Gastro-esophageal reflux disease without esophagitis; Z68.33 Body mass index [BMI] 33.0-33.9, adult
CPT/HCPCS: 36415; 80048-TC; 80053-TC; 80061-TC; 80076-TC; 80305; 81000-TC; 82962-TC; 85025-TC; 87081-TC; 87086-TC; 87186-TC; 97001-TC; 97530-TC; A4606; G0480; G6039-TC; J1631; J1815; Z7610